=== PATIENT | female | born 1990 | race Caucasian/White ===

== ENCOUNTER 2018-08-06 16:56 | Outpatient (CLI) | payer MEDICAID ==
[2018-08-06 17:55] LABS: ADD UMIC YES; UR ASCORBIC ACID NEGATIVE (NEGATIVE); UR BACTERIA FEW /HPF (NONE SEEN); UR BILIRUBIN (Dip) NEGATIVE (NEGATIVE); UR BLOOD (Dip) NEGATIVE (NEGATIVE); UR CLARITY CLEAR (CLEAR); UR COLOR STRAW (YELLOW); UR GLUCOSE (Dip) NEGATIVE (NEGATIVE); UR KETONES (Dip) 1+ mg/dL (NEGATIVE); UR LEUKOCYTE ESTERASE (Dip) TRACE Leu/ul (NEGATIVE); UR NITRITE (Dip) NEGATIVE (NEGATIVE); UR RBC 1 /HPF (0-5); UR SPECIFIC GRAVITY (Dip) 1.005 (1.003-1.030); UR SQUAMOUS EPITHELIAL CELL FEW /HPF (FEW); UR TOTAL PROTEIN (Dip) NEGATIVE (NEGATIVE); UR UROBILINOGEN (Dip) NEGATIVE (NEGATIVE); UR WBC 5 /HPF (0-5)
[2018-08-06] MEDS: LACTATED RINGER'S 1,000 ML IV (17:55)
[2018-08-06] MEDS: TERBUTALINE 1 MG/ML INJ SC (18:07)
[2018-08-06] MEDS ORDERED: TERBUTALINE 1 MG/ML INJ SC (20:30)
[2018-08-06] MEDS ORDERED: LACTATED RINGER'S 1,000 ML IV (20:30)
== END 2018-08-06 20:20 | disposition home or self-care (01) ==
LOC: OBT 16:56 → L-D 16:59 → OBT 20:20
DX: O62.9 Abnormality of forces of labor, unspecified (principal); Z3A.34 34 weeks gestation of pregnancy
CPT/HCPCS: 36415; 76817; 76818; 81001; 96360; 96361; 96372

== ENCOUNTER 2018-08-28 20:38 | Inpatient (IN) | payer MEDICAID ==
[2018-08-28] MEDS ORDERED: LACTATED RINGER'S 1,000 ML IV (23:31)
[2018-08-28 23:37] LABS: ADD MAN DIFF? NO
[2018-08-28 23:40] LABS: WHITE BLOOD COUNT 12.9 10^3/ul (4.8-10.8)
[2018-08-28 23:40] LABS: BASOPHIL # 0.1 10^3/ul (0.0-0.1); BASOPHILS % 0.4 % (0.0-2.0); EOSINOPHILS # 0.1 10^3/ul (0.0-0.5); HEMOGLOBIN 12.7 g/dl (12.0-16.0); LYMPHOCYTES # 2.1 10^3/ul (0.8-2.9); LYMPHOCYTES % 16.4 % (15.0-51.0); MEAN CORPUSCULAR HEMOGLOBIN 31.9 pg (29.0-33.0); MEAN CORPUSCULAR HGB CONC 34.3 g/dl (32.0-37.0); MEAN PLATELET VOLUME 9.4 fl (7.4-10.4); MONOCYTE # 1.2 10^3/ul (0.3-0.9); MONOCYTES % 9.4 % (0.0-11.0); NEUTROPHIL # 9.3 10^3/ul (1.6-7.5); NEUTROPHILS % 72.2 % (39.0-77.0); PLATELET COUNT 258 10^3/UL (140-415); RED BLOOD COUNT 3.98 10^6/ul (4.20-5.40); RED CELL DISTRIBUTION WIDTH 12.1 % (11.5-14.5)
[2018-08-28 23:58] LABS: INR 0.89; PROTIME 12.2 Sec (11.9-14.9)
[2018-08-29] MEDS ORDERED: morphine SULFATE/PF (10 MG/10 ML) INJ (00:02)
[2018-08-29] MEDS ORDERED: PHENYLephrine (100 MCG/ML) 5ML SYG ×3 (00:12→00:41)
[2018-08-29] MEDS ORDERED: FENTAnyl 50 MCG/ML VIAL (00:25)
[2018-08-29 00:30] LABS: HEPATITIS B SURFACE ANTIGEN NEGATIVE (NEGATIVE)
[2018-08-29] MEDS ORDERED: DIPHENHYDRAMINE 50 MG INJ IV ×2 (00:30→04:30)
[2018-08-29] MEDS ORDERED: FENTAnyl 50 MCG/ML VIAL IV ×3 (00:30)
[2018-08-29] MEDS ORDERED: HYDROmorphONE 0.5 MG/0.5 ML SYG IV (00:30)
[2018-08-29] MEDS ORDERED: HYDROmorphONE 1 MG/5 ML IV SYRINGE IV ×3 (00:30)
[2018-08-29] MEDS ORDERED: ALBUTEROL 0.083% (NEB) 2.5 MG/3 ML AMP HHN (00:30)
[2018-08-29] MEDS ORDERED: KETOROLAC 30 MG INJ IV (00:30)
[2018-08-29] MEDS ORDERED: ONDANSETRON 4 MG INJ IV ×3 (00:30→04:30)
[2018-08-29] MEDS ORDERED: METOCLOPRAMIDE 10 MG INJ IV (00:30)
[2018-08-29] MEDS ORDERED: NALOXONE (0.4 MG/ML) INJ IV (00:30)
[2018-08-29] MEDS ORDERED: PHENYLephrine 10 MG INJ ×2 (00:40→01:20)
[2018-08-29] MEDS: CEFAZOLIN 2 GM/50 ML (PMX) 50 ML IVPB (02:37)
[2018-08-29] MEDS: OXYTOCIN 30 UNITS/LR 500 ML IV (03:14)
[2018-08-29] MEDS ORDERED: ZOLPIDEM 5 MG TAB PO (04:30)
[2018-08-29] MEDS ORDERED: CARBOPROST 250 MCG INJ IM ×2 (04:30)
[2018-08-29] MEDS ORDERED: OXYTOCIN 30 UNITS/LR 500 ML IV ×2 (04:30)
[2018-08-29] MEDS ORDERED: METHYLERGONOVINE 0.2 MG INJ IM ×2 (04:30)
[2018-08-29] MEDS ORDERED: MISOPROSTOL 200 MCG TAB PR ×2 (04:30)
[2018-08-29] MEDS ORDERED: OXYTOCIN 30 UNITS/LR 500 ML BAG IV (07:00)
[2018-08-29] MEDS: LACTATED RINGER'S 1,000 ML IV (07:30)
[2018-08-29] MEDS: SENNA/DOCUSATE NA (8.6MG/50MG) TAB PO ×2 (09:00→21:06)
[2018-08-29] MEDS: LANOLIN HPA 1 PKT TOP (11:56)
[2018-08-29] MEDS: KETOROLAC 30 MG INJ IV ×2 (11:57→19:52)
[2018-08-29] MEDS: DIPHENHYDRAMINE 50 MG INJ IV (14:56)
[2018-08-29 15:17] LABS: RAPID PLASMA REAGIN NONREACTIVE (NR)
[2018-08-29] MEDS: HYDROmorphONE 0.5 MG/0.5 ML SYG IV (16:36)
[2018-08-29] MEDS: IBUPROFEN 800 MG TAB NGT (22:00)
[2018-08-29] MEDS: HYDROCODONE/APAP (5/325) TAB PO (22:00)
[2018-08-30] MEDS ORDERED: DIPHENHYDRAMINE 50 MG INJ IV (00:30)
[2018-08-30] MEDS ORDERED: OXYCODONE/ACETAMINOPHEN (5/325) TAB PO ×2 (00:30)
[2018-08-30] MEDS: HYDROCODONE/APAP (5/325) TAB PO ×4 (01:08→22:26)
[2018-08-30] MEDS: IBUPROFEN 800 MG TAB PO ×3 (05:36→22:26)
[2018-08-30] MEDS ORDERED: IBUPROFEN 600 MG TAB PO (06:00)
[2018-08-30 08:36] LABS: ADD MAN DIFF? NO
[2018-08-30 08:44] LABS: ABNORMAL IP MESSAGE 1; BASOPHIL # 0.1 10^3/ul (0.0-0.1); BASOPHILS % 0.5 % (0.0-2.0); EOSINOPHILS # 0.3 10^3/ul (0.0-0.5); EOSINOPHILS % 1.5 % (0.0-7.0); HEMATOCRIT 31.8 % (37.0-47.0); HEMOGLOBIN 10.9 g/dl (12.0-16.0); LYMPHOCYTES # 1.6 10^3/ul (0.8-2.9); LYMPHOCYTES % 7.6 % (15.0-51.0); MEAN CORPUSCULAR HEMOGLOBIN 32.2 pg (29.0-33.0); MEAN CORPUSCULAR HGB CONC 34.3 g/dl (32.0-37.0); MEAN CORPUSCULAR VOLUME 93.8 fl (82.0-101.0); MEAN PLATELET VOLUME 9.5 fl (7.4-10.4); MONOCYTE # 1.7 10^3/ul (0.3-0.9); MONOCYTES % 8.4 % (0.0-11.0); NEUTROPHIL # 16.7 10^3/ul (1.6-7.5); NEUTROPHILS % 81.3 % (39.0-77.0); PLATELET COUNT 233 10^3/UL (140-415); RED BLOOD COUNT 3.39 10^6/ul (4.20-5.40); RED CELL DISTRIBUTION WIDTH 12.3 % (11.5-14.5)
[2018-08-30 08:44] LABS: WHITE BLOOD COUNT 20.5 10^3/ul (4.8-10.8)
[2018-08-30 08:51] LABS: POSITIVE DIFF @See below
[2018-08-30] MEDS: SENNA/DOCUSATE NA (8.6MG/50MG) TAB PO ×2 (09:17→22:26)
[2018-08-31] MEDS: HYDROCODONE/APAP (5/325) TAB PO ×4 (06:37→21:44)
[2018-08-31] MEDS: IBUPROFEN 800 MG TAB PO ×3 (06:37→21:43)
[2018-08-31 08:30] LABS: ADD MAN DIFF? NO
[2018-08-31 08:42] LABS: ABNORMAL IP MESSAGE 1; BASOPHIL # 0.1 10^3/ul (0.0-0.1); BASOPHILS % 0.5 % (0.0-2.0); EOSINOPHILS # 0.4 10^3/ul (0.0-0.5); EOSINOPHILS % 2.5 % (0.0-7.0); HEMATOCRIT 32.3 % (37.0-47.0); HEMOGLOBIN 10.7 g/dl (12.0-16.0); LYMPHOCYTES # 2.1 10^3/ul (0.8-2.9); LYMPHOCYTES % 13.1 % (15.0-51.0); MEAN CORPUSCULAR HEMOGLOBIN 31.8 pg (29.0-33.0); MEAN CORPUSCULAR HGB CONC 33.1 g/dl (32.0-37.0); MEAN CORPUSCULAR VOLUME 95.8 fl (82.0-101.0); MEAN PLATELET VOLUME 9.6 fl (7.4-10.4); MONOCYTE # 1.5 10^3/ul (0.3-0.9); MONOCYTES % 9.4 % (0.0-11.0); NEUTROPHIL # 11.9 10^3/ul (1.6-7.5); NEUTROPHILS % 73.8 % (39.0-77.0); PLATELET COUNT 260 10^3/UL (140-415); RED BLOOD COUNT 3.37 10^6/ul (4.20-5.40); RED CELL DISTRIBUTION WIDTH 12.6 % (11.5-14.5)
[2018-08-31 08:42] LABS: WHITE BLOOD COUNT 16.1 10^3/ul (4.8-10.8)
[2018-08-31 08:45] LABS: POSITIVE DIFF @See below
[2018-08-31] MEDS: SENNA/DOCUSATE NA (8.6MG/50MG) TAB PO ×2 (10:54→21:43)
[2018-08-31] MEDS: LANOLIN HPA 1 PKT TOP (10:54)
[2018-09-01] MEDS: IBUPROFEN 800 MG TAB PO ×2 (05:42→13:56)
[2018-09-01] MEDS: HYDROCODONE/APAP (5/325) TAB PO ×2 (05:42→17:34)
[2018-09-01] MEDS: DIPHTH/TET/ACEL PERTUSS (ADULT) 0.5 ML VIAL IM* (09:00)
[2018-09-01] MEDS: SENNA/DOCUSATE NA (8.6MG/50MG) TAB PO (09:11)
== END 2018-09-01 19:05 | disposition home or self-care (01) | DRG 788 ==
LOC: OBT 20:38 → L-D 08-29 02:27 → PP1 08-29 04:07 → OBT 23:05 → L-D 23:05
PROVIDERS: Obstetrics & Gynecology
PROC: 10D00Z1 Extraction of Products of Conception, Low, Open Approach (ICD-10-PCS; principal; 2018-08-28)
DX: O34.211 Maternal care for low transverse scar from previous cesarean delivery (principal); Z3A.37 37 weeks gestation of pregnancy; Z37.0 Single live birth
CPT/HCPCS: 85025; 85610; 85730; 86592; 86850; 86900; 86901; 87340; 90686; 99464